=== PATIENT | female | born 1985 | race Caucasian/White ===

== ENCOUNTER 2018-12-20 05:27 | Observation (INO) | payer OTHER ==
[~2018-12-20] VITALS: Ht 157.5 cm; Wt 90.7 kg
[~2018-12-20 05:27] MED LIST: PRILOSEC OTC20 MG PO; WOMEN'S DAILY1 EACH PO; [UNRECOGNIZED DRUG - OTHER] PO
--- OUTSIDE RECORDS SUMMARY | 2018-12-20 05:31 | XMS REPORT | Clinical Summary ---
Author Author [facility] Organization [facility] Address Unknown Phone Unavailable Care Team Providers Care Mining Manager Name Role Phone Cherry Cooley PCP Allergies No Known Allergies Medications End Date Status Medication Sig Dispensed Refills Start Date Active escitalopram oxalate Take 10 mg by 0 (LEXAPRO) 10 MG tablet mouth daily. Active dexmethylphenidate Take 20 mg by 0 (FOCALIN XR) 20 MG 24 hr mouth daily. capsuleIndications: Attention-Deficit Hyperactivity Disorder Active omeprazole (PRILOSEC) 10 Take 10 mg by 0 MG capsuleIndications: mouth daily. heartburn Active Problems Problem Noted Date Meningitis 04/22/2015 Leukocytosis, unspecified 04/19/2015 Acute intractable headache, unspecified headache type 04/18/2015 Social History Date Tobacco Use Types Packs/Day Years Used Never Smoker Alcohol Use Drinks/Week oz/Week Comments No Sex Assigned at Date Recorded Not on file Industry Job Start Date Occupation Not on file Not on file Not on file Travel End Travel History Travel Start No recent travel history available. Last Filed Vital Signs Not on file Plan of Treatment Not on file Results Not on fileafter 12/19/2017 Insurance Payer Benefit Subscriber ID Type Phone Address Plan / Group AETNA - MGD CARE AETNA xxxxxxxxxx HMO/POS SELECT US ACCESS Advance Directives For more information, please contact: [facility] [address] [place] [address] Date Inactivated Comments Code Status Date Activated 04/22/2015 5:06 PM Full Code 04/18/2015 11:58 PM This code status was determined by: Patient
--- OUTSIDE RECORDS SUMMARY | 2018-12-20 05:31 | XMS REPORT | Clinical Summary ---
Author Author [facility] Address Unknown Phone Unavailable Care Team Providers Care Lockstitch Waistband Setter Name Role Phone Cherry Cooley MD PCP Allergies Not on File Medications Not on file Active Problems Not on file Social History Date Tobacco Use Types Packs/Day Years Used Never Assessed Sex Assigned at Date Recorded Not on file Industry Job Start Date Occupation Not on file Not on file Not on file Travel End Travel History Travel Start No recent travel history available. Last Filed Vital Signs Not on file Plan of Treatment Health Maintenance Due Date Last Done Comments INFLUENZA VACCINE 02/28/2019 Results Not on fileafter 12/19/2017 Insurance Type Payer Benefit Subscriber ID Effective Phone Address Plan / Dates Group HMO AETNA AETNA xxxxxxxxxx 2011-P HMO,POS,EP resent O, [facility] Advance Directives Patient has advance care planning documents on file. For more information, noreen zaragoza contact: Rhett Daniel [address] [place] [address]
[2018-12-20] MEDS ORDERED: CEFAZOLIN SOD 1 GM/NS 50ML 50 ML IV ONE (06:23)
[2018-12-20] MEDS: LACTATED RINGER'S 1,000 ML IV SCH ×2 (10:19→20:42)
[2018-12-20] MEDS ORDERED: HYDROCODONE/APAP 7.5MG-325MG 1 EA TAB PO PRN (10:30)
[2018-12-20] MEDS ORDERED: HYDROMORPHONE 1MG/1ML INJ IV PRN (10:30)
[2018-12-20] MEDS ORDERED: ACETAMINOPHEN 325 MG TAB PO PRN (10:30)
[2018-12-20] MEDS ORDERED: FENTANYL CITRATE/PF 100MCG/2 ML INJ ONE ×3 (10:35→18:50)
[2018-12-20] MEDS ORDERED: ONDANSETRON HCL INJ 2MG/ML 2ML 2 MG/ML VIAL ONE ×2 (10:35→18:40)
[2018-12-20] MEDS ORDERED: SCOPOLAMINE 1.5 MG PATCH ONE (10:35)
--- OUTSIDE RECORDS SUMMARY | 2018-12-20 10:44 | XMS REPORT | Clinical Summary ---
Author Author [facility] Organization [facility] Address Unknown Phone Unavailable Care Team Providers Care Computer Repair Engineer Name Role Phone Cherry Cooley PCP Allergies [...] Advance Directives For more information, please contact: [facility] [address] [place] [address] Date Inactivated Comments Code Status Date Activated 04/22/2015 5:06 PM Full Code 04/18/2015 11:58 PM This code status was determined by: Patient
--- OUTSIDE RECORDS SUMMARY | 2018-12-20 10:44 | XMS REPORT | Clinical Summary ---
Author Author [facility] Organization [facility] Address Unknown Phone Unavailable Care Team Providers Care Broke Worker Name Role Phone Cherry Cooley MD PCP [...] more information, noreen zaragoza contact: [facility] [address] [place] [address]
--- NOTE | 2018-12-20 12:46 | NUR ---
RECEIVED REPORT FROM DEWEY IN PACU AWAITING FOR PT TO ARRIVE TO UNIT
[2018-12-20 13:00] VITALS: BP_SYST 114; BP_SYST 117; BP_DIAS 70
--- NOTE | 2018-12-20 13:00 | NUR ---
PT ARRIVED TO FLOOR [id number]. DROWSY FROM ANESTHESIA. PT FAMILY IS AT BEDSIDE PT C/O PAIN TO THE ABD 02/06 PT RECEIVED FENTANYL RIGHT BEFORE TRANSFER TO FLOOR WILL WAIT FOR PRN PAIN MEDICATION ADMINISTRATION ABD SITE HAS A LOWER DRESSING (HORIZONTAL ALL ACROSS ANTERIOR ABD) LAKEISHA DRAIN X2 (LEFT AND RIGHT) LEFT SITE DRESSING WHERE LAKEISHA DRAIN IS SATURATED WITH BLOOD INTO LINEN. DRESSING REINFORCED, LINEN CHANGED. NO ACTIVE BLEEDING NOTED PT IS ON FULL LIQUID DIET AND HAS PITCHER AT BEDSIDE WILL MONITOR SITE CLOSELY, SIDE RAILSX2, BED WHEELS LOCKED, CALL LIGHT IS WITHIN EASY REACH, INSTRUCTED TO CALL FOR ASSISTANCE IF NEEDED
[2018-12-20] MEDS ORDERED: HYDROMORPHONE 2MG/ML 2 MG/ML ML IV PRN (13:45)
[2018-12-20] MEDS: CEFAZOLIN SOD 1 GM/NS 50ML 50 ML IV SCH ×2 (13:47→22:09)
--- NOTE | 2018-12-20 14:00 | NUR ---
REASSESSED LEFT LAKEISHA DRAIN SITE. REMAINS DRY AND INTACT
[2018-12-20] MEDS: ONDANSETRON HCL 4 MG ORAL DISINTEGRATING TAB SL PRN ×2 (14:07→19:40)
[2018-12-20] MEDS: HYDROMORPHONE 2MG/ML 2 MG/ML ML IV PRN ×2 (14:24→19:59)
[2018-12-20 16:10] VITALS: BP 114/59
[2018-12-20] MEDS: DOCUSATE SODIUM 100 MG CAP PO SCH (17:13)
[2018-12-20] MEDS ORDERED: PROPOFOL IV EMULSION 10 MG/ML 20 ML VIAL ONE (18:40)
[2018-12-20] MEDS ORDERED: DEXAMETHASONE SOD PHOS INJ 4 MG/ML VIAL ONE (18:40)
[2018-12-20] MEDS ORDERED: ACETAMINOPHEN 1000 MG/100 ML IV ONE (18:40)
[2018-12-20] MEDS ORDERED: ROCURONIUM BROMIDE 10 MG/ML 5ML VIAL ONE (18:40)
[2018-12-20] MEDS ORDERED: LIDOCAINE HCL 2% LOCAL INJ 5 ML SDV VIAL INJ ONE (18:40)
[2018-12-20] MEDS ORDERED: SEVOFLURANE INHAL SOLN 250 ML PEN BTL ONE (18:40)
[2018-12-20] MEDS ORDERED: MIDAZOLAM HCL 2 MG/2 ML VIAL ONE (18:50)
[2018-12-20] MEDS: PANTOPRAZOLE SOD 40 MG TABEC PO SCH (18:50)
[2018-12-20] MEDS ORDERED: MORPHINE SULFATE INJ 10 MG/ML ONE (18:50)
[2018-12-20 19:10] VITALS: BP 106/63
--- NOTE | 2018-12-20 19:10 | NUR ---
RECEIVED PATIENT AAOX3, RESTING IN BED. AT BEDSIDE. LOWER ABD DRSG C/D/I, X2 LAKEISHA DRAIN TO SUCTION. BED LOCKED AND IN LOWEST POSITION, CALL LIGHT WITHIN EASY REACH. WILL CONTINUE TO MONITOR THE PATIENT.
[2018-12-20 19:53] VITALS: BP 106/63
[2018-12-20 23:41] VITALS: BP 101/52
[2018-12-21 04:10] VITALS: BP 99/53
[2018-12-21] MEDS: CEFAZOLIN SOD 1 GM/NS 50ML 50 ML IV SCH (06:50)
--- NOTE | 2018-12-21 06:55 | NUR ---
medina cath removed, tip intact. patient tolerated well.
[2018-12-21] MEDS: ONDANSETRON HCL 4 MG ORAL DISINTEGRATING TAB SL PRN (07:10)
--- NOTE | 2018-12-21 07:24 | NUR ---
REPORT GIVEN TO ONCOMING NURSE. PATIENT STABLE CONDITION. AMBULATED TO RESTROOM.
--- NOTE | 2018-12-21 07:25 | NUR ---
MD AT BEDSIDE CHANGING DRSG AND GIVING HER DC INSTRUCTIONS. PAIN LEVEL AT 7/10. NIGHT RN MEDICATED HER ORDERED
[2018-12-21] MEDS: HYDROMORPHONE 2MG/ML 2 MG/ML ML IV PRN (07:30)
[2018-12-21] MEDS: LACTATED RINGER'S 1,000 ML IV SCH (07:30)
[2018-12-21 08:23] VITALS: BP 88/50
[2018-12-21] MEDS ORDERED: NORCO 5-325 TA1 EACH PO (08:59)
[2018-12-21] MEDS ORDERED: MULTIVIT WITH CALCIUM IRON MIN PO SCH (09:00)
[2018-12-21] MEDS ORDERED: ENOXAPARIN SOD INJ 40 MG/0.4 ML SYR SC SCH (09:00)
[2018-12-21] MEDS ORDERED: FOCALIN PO SCH (09:00)
[2018-12-21] MEDS: DOCUSATE SODIUM 100 MG CAP PO SCH (09:00)
[2018-12-21] MEDS ORDERED: KEFLEX500 MG PO (09:00)
[2018-12-21] MEDS ORDERED: MULTIVITAMINS/MINERALS TAB PO SCH (09:00)
[2018-12-21] MEDS ORDERED: OMEPRAZOLE MAGNESIUM PO SCH (09:00)
[2018-12-21] MEDS: PANTOPRAZOLE SOD 40 MG TABEC PO SCH (09:20)
--- NOTE | 2018-12-21 10:58 | NUR ---
PT IV DC EARLIER AND DC INSTRUCTIONS GIVEN ALONG WITH PRESCRIPTIONS. PT ACCOMPANY OUT BY STAFF VIA WC. AT SIDE.
--- NOTE | 2018-12-21 18:35 | Operative Report ---
DATE OF PROCEDURE: 12/20/2018 SURGEON: Dev Mays MD PREOPERATIVE DIAGNOSES: 1. Ventral hernia. 2. Abdominal lipodystrophy with diastasis recti. POSTOPERATIVE DIAGNOSES: 1. Ventral hernia. 2. Abdominal lipodystrophy with diastasis recti. PROCEDURES: 1. Repair of ventral hernia. 2. Abdominoplasty. ANESTHESIA: General. HISTORY: The patient is a 33-year-old female, who underwent a mini-abdominoplasty in 2008. At that time, no surgery around the umbilicus was performed, but the mini-abdominoplasty included removal of a lower abdominal pannus and plication of the infraumbilical rectus fascia. She had four children. Subsequently, underwent multiple C-sections and had multiple lower abdominal surgeries. After the of her last child approximately 5 years ago, she underwent a tubal ligation, which was performed through a circumumbilical incision. The patient complains of a ventral fascial defect in the lower abdominal area as well as abdominal lipodystrophy. She is aware that the cosmetic portion of the procedure is not covered under insurance and has made coverage for this under separate cover. The risks, benefits, and alternatives were discussed with the patient and she is prepared to undergo the procedure as outlined. PROCEDURE: The patient was marked preoperatively in the holding area. She was brought to the operating theater. After the induction of adequate general anesthesia, she was prepped and draped in a supine position. Fernandes catheter was placed and Venodyne compression boots were placed. A midline from the xiphoid to the introitus was marked out with a silk suture. It was noted that the umbilicus appears deviated from the midline and appears to be free-floating. The lower abdominal incision was marked approximately 7 cm from the superior aspect of the introitus and it was carried towards the anterior-superior iliac spines and lateral hips. Time-out was performed. The incision was made through the skin and subcutaneous tissues. Bleeding was controlled using electrocautery. The incision was deepened through the subcutaneous and Veronica's fascia and hemostasis was achieved with electrocautery. The incision was then deepened until the anterior rectus fascia was identified. Using electrocautery, the soft tissues were elevated off the anterior rectus fascia up to the level of the inferior border of the umbilicus. At this point, the umbilicus was tented up with skin hooks and sharply circumscribed and released from the anterior skin and subcutaneous tissue. During this dissection, it was noted that the umbilical stalk had been completely disassociated from the anterior abdominal wall from the prior tubal ligation. The dissection then continued on the undersurface maintaining the umbilicus with its surrounding subcutaneous tissue attached to the anterior rectus fascia without a true umbilical stalk. The dissection then continues up to the costal margins bilaterally and the xiphoid in the midline using electrocautery, carefully collapsing all of the abdominal perforators. At this point, the ventral hernia in the lower portion of the abdomen has the excess scar tissue sharply excised and all of the previous sutures from the C-sections were removed. The ventral fascial defect was repaired using 0-Ethibond in an interrupted buried [id number] fashion. At the completion of the ventral hernia repair, attention was then turned to the performance of the abdominoplasty. The rectus plication was marked out with a maximum width at the level of the umbilicus, 8 cm width was used. The plication of the diastasis recti was performed from the xiphoid to the umbilicus utilizing 0-Ethibond in an interrupted buried [id number] fashion. At this point, the plication continues well caudal to the umbilicus in order not to put too much pressure on the remaining vascularity for the umbilicus. The infraumbilical portion of the plication was carried out using 0-Ethibond in an interrupted buried [id number] fashion as well. At this portion of the procedure, the hemostasis was made absolute using electrocautery. The patient's back was elevated approximately a 30-40 degree posture. The knees and hips were flexed and the redundant skin and subcutaneous tissue of the anterior abdominal wall was marked out. The redundant skin and subcutaneous tissue were then excised full thickness and the wound edges made hemostatic using electrocautery. At this point, copious irrigation of the abdominal wound was done and hemostasis was checked and made absolute using the electrocautery. Two 15-Syriac Rob Malik drains were placed, one above the umbilicus, one below the umbilicus and secured to the skin with 3-0 nylon suture. The Veronica's fascia was approximated with 2-0 PDS in an interrupted buried fashion. The deep dermis was approximated with INSORB surgical stapler. Then, the skin was then approximated with 4-0 Monocryl in a running subcuticular fashion. Over the midline, a 2 cm vertical ellipse of skin and subcutaneous tissue was incised through the anterior abdominal wall and then the surrounding areas defatted. Because of the tenuous nature of the umbilicus, the anterior skin and subcutaneous tissue were then parachuted down to the anterior rectus fascia at the level of the umbilicus. A 4-0 Monocryl suture was then used in an interrupted buried fashion to approximate the umbilicus to the surrounding dermis and then 5-0 nylon sutures were used in interrupted fashion circumferentially around the umbilicus. The umbilicus was noted to have delayed capillary refill and some evidence of partial ischemia. At this point, Bactroban ointment and Xeroform gauze were placed into the umbilicus. Sterile 4 x 4's and a coverlet dressing was applied. Steri-Strips were applied to the lower abdominal incision. The drains were placed and suctioned and dressings were applied to the lower abdominal wall. The patient was transferred to the hospital bed with the head of bed up at approximately 40 degrees and the knees elevated and flexed. The Fernandes catheter remains in place and the Venodyne compression boots were activated. The patient was returned to the recovery room and then transferred to the hospital bed for overnight observation. The estimated blood loss for the procedure was 150 mL. MD CHIQUIS Pastor/TI /[id number]
== END 2018-12-21 10:58 | disposition home or self-care (01) ==
LOC: OR 05:27 → PACU V 10:20 → MED/SURG 13:00
PROVIDERS: ADMIT Plastic Surgery; ATTEND Plastic Surgery
DX: K43.9 Ventral hernia without obstruction or gangrene (principal); L98.7 Excessive and redundant skin and subcutaneous tissue; K21.9 Gastro-esophageal reflux disease without esophagitis; F41.9 Anxiety disorder, unspecified; M62.08 Separation of muscle (nontraumatic), other site
CPT/HCPCS: 17999; 49560; 81025; G0378 ×2; J0131; J0690 ×2; J1100; J1170 ×2; J1650; J2001; J2250; J2270; J2405; J2704; J7121 ×2; Q0162 ×2; S0164 ×2